=== PATIENT | female | born 1990 | race Caucasian/White ===

== ENCOUNTER 2016-12-31 23:03 | Emergency (ER) | payer OTHER ==
[~2016-12-31] VITALS: Ht 162.6 cm; Wt 49.9 kg
--- NOTE | 2017-01-01 00:24 | NUR ---
PATIENT WALKED UP TO CARRY IN WORKER'S WINDOW AND STATED "I AM LEAVING. I DON'T WANT TO BE SEEN ANYMORE." PT LEFT WITHOUT BEING SEEN BY
== END 2017-01-01 00:29 | disposition left against medical advice (07) ==
LOC: ER 23:04
DX: Z53.21 Procedure and treatment not carried out due to patient leaving prior to being seen by health care provider (principal)
CPT/HCPCS: A4663